=== PATIENT | female | born 1950 | race Caucasian/White ===

== ENCOUNTER 2022-05-30 07:45 | Day surgery (SDC) | payer OTHER, MEDICARE ==
[2022-05-23 12:24] VITALS: BMI 23.8
[2022-05-30 08:02] VITALS: RESP 16
[2022-05-30 09:19] VITALS: TEMP 98
[2022-05-30 09:41] VITALS: BP 118/71; PULSE 70
== END 2022-05-30 09:58 | disposition home or self-care (01) ==
LOC: FASU-ENDO 07:45
PROVIDERS: ATTEND Internal Medicine Gastroenterology
PROC: 0DJD8ZZ Inspection of Lower Intestinal Tract, Via Natural or Artificial Opening Endoscopic (ICD-10-PCS; principal; 2022-05-30 08:58)
DX: Z12.11 Encounter for screening for malignant neoplasm of colon (principal); Z83.71 Family history of colonic polyps; R93.3 Abnormal findings on diagnostic imaging of other parts of digestive tract
CPT/HCPCS: 82962